=== PATIENT | female | born 1995 | race Caucasian/White ===

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

== ENCOUNTER → 2021-07-22 | Outpatient (CLI) | payer OTHER ==
[~2021-07-22] MED LIST changes: -CIPR500T4; +CIPR500T5
--- NOTE | 2021-07-22 08:03 | Diagnostic Imaging Report ---
PROCEDURE: US Gallbladder. TECHNIQUE: Multiple real-time grayscale images were obtained over the right upper quadrant in various projections. INDICATION: Right upper quadrant abdominal pain with diarrhea FINDINGS: Grayscale imaging of the gallbladder reveals no intraluminal filling defect. There is no gallbladder wall thickening or pericholecystic fluid. No intra or extrahepatic biliary ductal dilatation is identified. No pancreatic, right renal, abdominal aortic or inferior vena caval abnormality is documented. No ascites was noted. IMPRESSION: Unremarkable right upper quadrant abdominal ultrasound. Dictated by: Dictated on workstation # [id number]
== END ==
LOC: RAD 07:15
PROVIDERS: ATTEND Family Medicine
DX: R10.11 Right upper quadrant pain (principal); R19.7 Diarrhea, unspecified
CPT/HCPCS: 76705

== ENCOUNTER → 2021-08-07 | Outpatient (CLI) | payer BC, OTHER ==
[~2021-08-07] MED LIST changes: +CATHETER FLUSH 10 ML SYR IVP PRN
--- NOTE | 2021-08-07 14:47 | Diagnostic Imaging Report ---
INDICATION: Abdominal pain. Patient was administered 4.9 mCi technetium 99m Choletec intravenously and imaging of the abdomen was performed. At 1 hour patient ingested 8 ounces of Ensure and the gallbladder ejection fraction was calculated. Patient denied discomfort during the study. There is homogeneous uptake of activity by the liver. There is prompt excretion of activity into the common duct and gallbladder. There is normal passage into the small bowel. Gallbladder ejection fraction is normal at 77%. IMPRESSION: Normal HIDA scan and gallbladder ejection fraction. Dictated by: Dictated on workstation # [id number]
== END ==
LOC: CARD 10:00
PROVIDERS: ATTEND Family Medicine
DX: R10.11 Right upper quadrant pain (principal)
CPT/HCPCS: 78227; A9537